=== PATIENT | female | born 1955 | race African-American/Black ===

== ENCOUNTER 2024-10-16 13:44 | Emergency (ER) | payer OTHER ==
[2024-10-16 14:04] VITALS: BP 127/52; PULSE 75; RESP 18; TEMP 98.4; BMI 31.1
== END 2024-10-16 14:44 | disposition home or self-care (01) ==
LOC: MERGE 13:44 → JERFT 13:44
DX: J34.89 Other specified disorders of nose and nasal sinuses (principal)
CPT/HCPCS: 99283-25